=== PATIENT | female | born 1965 ===

== ENCOUNTER 2016-08-28 20:28 | Emergency (ER) | payer MEDICAID ==
[2016-08-28 20:35] VITALS: O2SAT 100
[2016-08-28] MEDS ORDERED: Sodium Chloride 0.9% 1,000 ML IV STA (21:10)
--- NOTE | 2016-08-28 21:10 | ED PDOC ---
HPI: General Adult Time Seen by Provider: 08/28/16 20:53 Chief Complaint (Nursing): Anxiety Chief Complaint (Provider): anxiety, fall History Per: Patient, EMS, Family Additional Complaint(s): Patient arrives via ambulance for evaluation status post fall. Patient had an argument with her son and after the argument she walked away from him and threw herself onto the ground and her head hit the ground. Patient did not sustain loss of consciousness. She presents with headache upon arrival as well as mild chest pain amnd she states that she feels anxious. Patient will not discuss what the argument was about with her son. Patient's son and daughter are at bedside. Patient denies suicidal or homicidal ideation. Past Medical History Reviewed: Historical Data, Nursing Documentation, Vital Signs Vital Signs: Last Vital Signs Temp 97.9 F 08/29/16 00:05 Pulse 66 08/29/16 00:05 Resp 16 08/29/16 00:05 BP 102/59 L 08/29/16 00:05 Pulse Ox 100 08/29/16 00:17 - Medical History PMH: No Chronic Diseases - Surgical History Surgical History: (x 2) Other surgeries: hysterectomy - Family History Family History: States: No Known Family Hx - Living Arrangements Living Arrangements: With Family - Social History Current smoker - smoking cessation education provided: No Alcohol: None Drugs: Denies - Allergies Allergies/Adverse Reactions: Allergies Allergy/AdvReac Type Severity Reaction Status Date / Time iodine Allergy Mild rash and Verified 08/28/16 20:35 swelling Review of Systems ROS Statement: Except As Marked, All Systems Reviewed And Found Negative Constitutional: Negative for: Fever Cardiovascular: Positive for: Chest Pain. Negative for: Palpitations Respiratory: Negative for: Cough Gastrointestinal: Negative for: Nausea, Vomiting Neurological: Positive for: Other (head injury s/p fall, no LOC). Negative for : Confusion, Seizures, Altered Mental Status, Dizziness Psych: Positive for: Anxiety. Negative for: Suicidal ideation Physical Exam - Reviewed Nursing Documentation Reviewed: Yes Vital Signs Reviewed: Yes - Physical Exam Appears: Positive for: Well Head Exam: Positive for: ATRAUMATIC, NORMAL INSPECTION, NORMOCEPHALIC Skin: Negative for: Rash Eye Exam: Positive for: Normal appearance, EOMI, PERRL ENT: Positive for: Normal ENT Inspection Neck: Positive for: Normal, Painless ROM Cardiovascular/Chest: Positive for: Regular Rate, Rhythm Respiratory: Positive for: Normal Breath Sounds Back: Positive for: Normal Inspection Extremity: Positive for: Normal ROM Neurologic/Psych: Positive for: Alert, Oriented, Mood/Affect (tearful, anxious) - Laboratory Results Result Diagrams: 08/28/16 22:17 08/28/16 22:17 - ECG Interpretation Of ECG: Normal sinus rhythm 60 bpm, no acute findings, reviewed by PA and ED attending O2 Sat by Pulse Oximetry: 100 Pulse Ox Interpretation: Normal - Other Rad CT head X-Ray: Interpreted by Me, Viewed By Me X-Ray Interpretation: no acute intracranial pathology Medical Decision Making Medical Decision Makin51 year old with anxiety and headache s/p fall. Plan: CT head EKG CBC CMP Trop PO tylenol IVF Patient aware of all diagnostic testing results. She feels better after Tylenol dose was given. Patient was offered crisis consult but she declined, she denies suicidal or homicidal ideation. She states she feels better and would like to go home. Advised Tylenol for headache as needed and follow up with primary doctor. Patient is aware she can return to ED at any time if acutely worse. Disposition - Clinical Impression Clinical Impression: Anxiety, Head injury - Patient ED Disposition Is Patient to be Admitted: No Counseled Patient/Family Regarding: Studies Performed, Diagnosis, Need For Followup - Disposition Referrals: [facility] [Outside] Disposition: Routine/Home Disposition Time: 00:03 Condition: STABLE Additional Instructions: Tylenol for pain as needed. Follow up with primary doctor clinic in 2-3 days. Instructions: Anxiety (ED), Head Injury (ED) Print Language: OCCITAN Results - Lab Results Lab Results: 08/28/16 22:17 WBC 9.0 RBC 4.80 Hgb 12.8 Hct 39.2 MCV 81.6 MCH 26.6 L MCHC 32.6 L RDW 14.4 Plt Count 134 MPV 11.6 Neut % (Auto) 64.0 Lymph % (Auto) 27.0 Terrell % (Auto) 6.5 Eos % (Auto) 2.2 Baso % (Auto) 0.3 Neut # 5.7 Lymph # 2.4 Terrell # 0.6 Eos # 0.2 Baso # 0.0 Sodium 138 Potassium 4.9 Chloride 105 Carbon Dioxide 26 Anion Gap 13 BUN 17 Creatinine 0.7 Est GFR ( Amer) > 60 Est GFR (Non-Af Amer) > 60 Random Glucose 100 Calcium 9.3 Total Bilirubin 1.0 AST 40 H ALT 41 Alkaline Phosphatase 205 H Troponin I < 0.0120 Total Protein 8.5 H Albumin 4.3 Globulin 4.2 H Albumin/Globulin Ratio 1.0
--- NOTE | 2016-08-28 22:08 | CT ---
EXAM: CT Head Without Intravenous Contrast CLINICAL HISTORY: 51 years old, female; Injury or trauma; Fall; Initial encounter; Concussion / head injury; Without loss of consciousness; Additional info: Headache TECHNIQUE: Axial computed tomography images of the head/brain without intravenous contrast. This CT exam was performed using one or more of the following dose reduction techniques: automated exposure control, adjustment of the mA and/or kV according to patient size, and/or use of iterative reconstruction technique. Coronal and sagittal reformatted images were created and reviewed. COMPARISON: No relevant prior studies available. FINDINGS: Brain: No hemorrhage. No significant white matter disease. No edema. Vascular calcification. Ventricles: No hydrocephalus. Bones: Skull is intact. Sinuses: No acute sinusitis. Mastoid air cells: No mastoid effusion. IMPRESSION: No CT evidence of acute intracranial abnormality.
[2016-08-28 22:20] LABS: BASO % 0.3 % (0.0-2.0); EOS # 0.2 K/uL (0.0-0.7); EOS % 2.2 % (0.0-4.0); HEMATOCRIT 39.2 % (34.0-47.0); LYMPH # 2.4 K/uL (1.0-4.3); MEAN CELL VOLUME 81.6 fl (81.0-99.0); MEAN CORPUSCULAR HEMOGLOBIN 26.6 pg (27.0-31.0); MEAN CORPUSCULAR HGB CONC 32.6 g/dL (33.0-37.0); MEAN PLATELET VOLUME 11.6 fl (7.2-11.7); MONO # 0.6 K/uL (0.0-0.8); MONO % 6.5 % (0.0-10.0); NEUT # 5.7 K/uL (1.8-7.0); RED CELL DISTRIBUTION WIDTH 14.4 % (11.5-14.5)
[2016-08-28 22:37] LABS: ALKALINE PHOSPHATASE 205 U/L (38-126); ALT/SGPT 41 U/L (9-52); AST/SGOT 40 U/L (14-36); BLOOD UREA NITROGEN 17 mg/dl (7-17); CALCIUM 9.3 mg/dL (8.4-10.2); CARBON DIOXIDE 26 mmol/L (22-30); CHLORIDE 105 mmol/L (98-107); GFR AFRICAN-AMERICAN > 60; GLUCOSE,RANDOM 100 mg/dL (65-105); POTASSIUM 4.9 MMOL/L (3.6-5.0); SODIUM 138 mmol/l (132-148); TOTAL PROTEIN 8.5 G/DL (6.3-8.2)
[2016-08-29 00:19] VITALS: BP 102/59; PULSE 66; RESP 16; TEMP 97.9
--- NOTE | 2016-08-29 15:03 | CARD ---
APPROVED REPORT EKG Measurement Heart [id number] OR [id number] [id number] <Conclusion> Normal sinus rhythm Normal ECG
== END 2016-08-29 00:30 | disposition home or self-care (01) ==
LOC: H.ER 20:28
DX: F41.9 Anxiety disorder, unspecified (principal); S09.90XA Unspecified injury of head, initial encounter; W19.XXXA Unspecified fall, initial encounter